=== PATIENT | female | born 1955 | race Asian ===

== ENCOUNTER → 2023-05-11 09:54 | Outpatient (REF) | payer MEDICARE, SELFPAY | LOC: WDC 09:54 | PROVIDERS: ATTENDING PHYSICIAN Family Medicine | DX: R92.2 Inconclusive mammogram (principal) | CPT/HCPCS: 76641 ==

== ENCOUNTER 2023-07-29 17:08 | Emergency (ER) | payer MEDICARE, SELFPAY ==
[2023-07-29 17:19] VITALS: BP 161/92
--- NOTE | 2023-07-29 19:27 | ED.GENMED ---
History of Present Illness
General
Chief Complaint: Musculo-Skeletal Complaint
Time Seen by Provider: 07/29/23 19:05
Travel History
Have you had any contact with someone who has COVID-19?: No
Do you have any symptoms of coronavirus? Fever > 100 degrees, chills, cough, shortness of breath, sore throat, loss of taste or smell, muscle aches, or headache?: No
History of Present Illness
History of Present Illness:
67-year-old female with left wrist pain after a fall. She denies any distal numbness. Denies any elbow or shoulder pain.
Review of Systems
Review of Systems
Allergies reviewed?: Yes
All Other Systems: ROS reviewed and negative except as documented in HPI and ROS
Phy Exam
Physical Exam
Physical Exam:
GEN: Well appearing, NAD, WDWN
HEENT: Oral mucosa moist, no scleral icterus
Cardiac: Regular rate
Lung: No respiratory distress, no tachypnea
MSK: Swelling with subtle deformity of the left wrist, no obvious angulation
Skin: Good color, no pallor or jaundice, no rashes
Neuro: AO x3, moves all extremities freely
Psych: Calm, cooperative
Course
Orders/Labs/Results
Orders:
Orders
07/29/23 17:24
CR Wrist - Left Min 3 Views Urgent
Comment:
Reason For Exam: fall
Vital Signs
Initial and Last Documented VS:
Initial Vital Signs
Temp Pulse Resp BP Pulse Ox
97.7 F 79 20 161/92 99
07/29/23 17:19 07/29/23 17:19 07/29/23 17:19 07/29/23 17:19 07/29/23 17:19
Last Documented Vital Signs
Temp Pulse Resp BP Pulse Ox
97.7 F 78 14 135/69 99
07/29/23 17:19 07/29/23 20:06 07/29/23 20:06 07/29/23 20:06 07/29/23 17:19
Procedures
Splinting/Sling Placement
Left Wrist:
Procedure completed by: Lauro Lockhart PA-C
Pre-splint extermity exam: neurovascular intact
Type of splint: sugar-tong
Splint material: fiberglass
MDM/Problems Addressed
MDM/Problems Addressed:
Distal radius fracture identified, splinted in the emergency department, outpatient orthopedic follow-up advised
*Critical Care Note
Total Time (30-74mins, 75-104mins- exclusive of procedures): Not Applicable
ED Attending Note
-
Portions of this chart may have been created with voice recognition software.� Occasional wrong word or��sound alike� substitutions may have occurred due to the inherent limitations of voice recognition software.
Discharge Plan
Departure
Patient Disposition: Home (Routine Discharge)
Date of Disposition: 07/29/23
Time of Disposition: 19:27
Patient with high blood pressure during this ER visit?: No
Discharge Problem:
Distal radius fracture, left
Instructions: Wrist Fracture (DC)
Referrals:
Fabrice Ball MD [Family Provider] -
Abhishek Loredo MD [Active] -
Activity Restrictions/Additional Instructions:
Take 400mg ibuprofen every 6-8 hours for pain
Interventions
Interventions:
*Risk Screen - Suicide Last Done: 07/29/23 17:19
*General Assessment Last Done: 07/29/23 17:19
*Neglect/Abuse Screening Last Done: 07/29/23 17:19
ED- Fall Risk Assessment Last Done: 07/29/23 18:09
*ED COVID-19 Vaccine History Last Done: 07/29/23 18:56
*Nursing Disposition Last Done: 07/29/23 20:25
ED-Musculoskeletal Assessment Last Done: 07/29/23 20:06
Discharge Date and Time
Discharge Date/Time: 07/29/23 20:25
Print Language: [id number]
[2023-07-29 20:06] VITALS: BP 135/69
== END 2023-07-29 20:25 | disposition home or self-care (01) ==
LOC: EMR 17:08
PROVIDERS: EMERGENCY PHYSICIAN Emergency Medicine; FAMILY PHYSICIAN Family Medicine
DX: S52.572A Other intraarticular fracture of lower end of left radius, initial encounter for closed fracture (principal); W19.XXXD Unspecified fall, subsequent encounter
CPT/HCPCS: 99283; 29125; 73110

== ENCOUNTER → 2024-02-27 13:27 | Outpatient (REF) | payer MEDICARE, SELFPAY | LOC: HWRAD 13:27 | PROVIDERS: ATTENDING PHYSICIAN Nurse Practitioner Adult Health; FAMILY PHYSICIAN Family Medicine | DX: N83.209 Unspecified ovarian cyst, unspecified side (principal); N84.0 Polyp of corpus uteri | CPT/HCPCS: 76830; 76856 ==

== ENCOUNTER → 2024-03-16 11:11 | Outpatient (REF) | payer MEDICARE, SELFPAY | LOC: HWRCS 11:11 | PROVIDERS: ATTENDING PHYSICIAN Internal Medicine Cardiovascular Disease; FAMILY PHYSICIAN Family Medicine | DX: I34.0 Nonrheumatic mitral (valve) insufficiency (principal) | CPT/HCPCS: 93306 ==